=== PATIENT | female | born 1940 | race Caucasian/White ===

== ENCOUNTER 2019-03-25 06:16 | Inpatient (IN) | payer MEDICARE, MEDICAID ==
[~2019-03-25] VITALS: Ht 167.6 cm; Wt 68.5 kg
[2019-03-25 06:20] VITALS: BP_SYST 150
--- NOTE | 2019-03-25 06:40 | NUR ---
Patient to ER bed 4 to gown for evaluation. Side rails up. .
[2019-03-25] MEDS ORDERED: IBUP-1969 PO (06:54)
[2019-03-25] MEDS ORDERED: METO25TA3 PO (06:54)
[2019-03-25] MEDS ORDERED: LEVO25TA7 PO (06:54)
[2019-03-25] MEDS ORDERED: TRAM100T34 PO (06:54)
[2019-03-25] MEDS ORDERED: FURO-150 PO (06:54)
[2019-03-25] MEDS ORDERED: RIVA15TA PO (06:54)
[2019-03-25] MEDS ORDERED: POTA10TA15 PO (06:54)
--- NOTE | 2019-03-25 06:55 | NUR ---
Medication reconciliation completed with information provided by LAURA BUCIO. Any prior medication reconciliation on file was reviewed and corrected.
--- NOTE | 2019-03-25 07:05 | NUR ---
REPORT GIVEN TO DAY SHIFT.
--- NOTE | 2019-03-25 07:40 | NUR ---
ER Dr. Alaniz at bedside examining patient.
[2019-03-25 08:30] LABS: BASOPHILS # (AUTO) 0.1 K/uL (0.0-0.2); BASOPHILS % (AUTO) 1.5 % (0.0-2.0); EOSINOPHILS # (AUTO) 0.1 K/uL (0.0-0.4); EOSINOPHILS % (AUTO) 2.5 % (0.0-4.0); HEMATOCRIT 35.9 % (36-48); HEMOGLOBIN 11.5 g/dL (12.0-16.0); LYMPHOCYTES % (AUTO) 24.5 % (20.5-51.5); MEAN CORPUSCULAR HEMOGLOBIN 27 pg (27-31); MEAN CORPUSCULAR HGB CONC 32 % (32-36); MEAN CORPUSCULAR VOLUME 84 fL (79.0-98.0); MONOCYTES # (AUTO) 0.3 K/uL (0.0-1.0); NEUTROPHILS # (AUTO) 2.5 K/uL (1.8-7.7); NEUTROPHILS % (AUTO) 64.5 % (40.0-70.0); PLATELET COUNT (AUTO) 167 K/uL (130-430); RED BLOOD CELL COUNT(AUTO) 4.29 MIL/uL (4.2-6.2)
[2019-03-25 08:38] LABS: ANION GAP 6 (5-15); CALCIUM 8.4 mg/dL (8.4-11.0); CHLORIDE 110 mmol/L (98-107); GLUCOSE 104 mg/dL (70-99); POTASSIUM 4.8 mmol/L (3.5-5.1); SODIUM SERUM 145 mmol/L (136-145); UREA NITROGEN, BLOOD 19 mg/dL (8-21)
[2019-03-25 08:44] LABS: ALANINE AMINOTRANSFERASE 21 U/L (12-78); ALBUMIN 3.2 g/dL (3.4-4.8); ASPARTATE AMINOTRANSFERASE 30 U/L (10-37); INR 1.1 (0.8-1.2); PROTHROMBIN TIME 11.1 SECS (9.5-12.5)
[2019-03-25] MEDS ORDERED: NACL 0.9% 1,000 ML IV ONE (09:15)
[2019-03-25] MEDS ORDERED: ASPIRIN 81 MG TAB.CHEW PO ONE (09:15)
--- NOTE | 2019-03-25 09:47 | NUR ---
2 unsuccessful IV attempts made. CATRACHO Lou to attempt.
[2019-03-25 11:03] LABS: BILIRUBIN,URINE NEGATIVE (NEGATIVE); BLOOD, URINE 1+ (NEGATIVE); CLARITY/URINE HAZY (CLEAR); COLOR,URINE YELLOW (YELLOW); GLUCOSE,URINE NEGATIVE (NEGATIVE); KETONES,URINE TRACE (NEGATIVE); LEUKOCYTE ESTERASE ,URINE NEGATIVE (NEGATIVE); NITRITE, URINE POSITIVE (NEGATIVE); PROTEIN URINE 2+ (NEGATIVE); UROBILINOGEN,URINE 0.2 (0.2-1.0)
[2019-03-25 11:10] LABS: BACTERIA,URINE MANY /HPF (None Seen)
[2019-03-25 11:11] LABS: MUCUS,URINE 1+ /LPF (None Seen); URINE AMORPHOUS URATE 2+ /HPF (None Seen)
--- NOTE | 2019-03-25 11:19 | NUR ---
2 unsuccessful IV attempts made by CATRACHO Fabian. Addendum: 03/25/[address] Alaniz made aware.
[2019-03-25] MEDS ORDERED: FUROSEMIDE 40 MG/4 ML VIAL IVP ONE (11:30)
--- NOTE | 2019-03-25 11:53 | NUR ---
Unable to complete medication reconcilliation. Will endorse to admitting nurse.
--- NOTE | 2019-03-25 11:57 | NUR ---
Patient will be admitted to care of Dr. Liriano. Admitted to med/surg unit. Will go to room 123A. Belongings list completed. Summary report printed. Report will be given at bedside.
--- NOTE | 2019-03-25 12:14 | NUR ---
Patient transported via gurney, mobile monitor, RN, EMT with intact and patent 24g IV to right hand. Report to ge given at bedside.
--- NOTE | 2019-03-25 12:19 | NUR ---
ADMISSION NOTE Received patient from ER via bharat, received report from Negrito HAYDEN. Patient admitted with diagnosis of UTI, CHF. Patient oriented to hospital routine, call light, toileting and safety-patient verbalized understanding.
--- NOTE | 2019-03-25 12:50 | NUR ---
NURSING ASSESSMENT. PT SEEN OPENING THE BATHROOM DOOR, GAIT STEADY, SWELLING TO BOTH LEGS, STATED "I HAVE TO GO NOW", REFERRING TO DO #1, PT WAS GIVEN LASIX PRIOR TO ADMISSION. ENCOURAGED PT TO PULL DOWN BATHROOM STRING IF SHE NEEDS ASSISTANCE.
[2019-03-25 13:52] VITALS: BP_SYST 135
--- NOTE | 2019-03-25 14:29 | NUR ---
NURSING. PT LAYING DOWN IN BED AFTER FREQUENT TRIPS TO THE BEDSIDE COMMODE, O2 IN USE VIA NASAL CANNULA. SHE PROVIDED MEDICAL HISTORY. CODE STATUS DISCUSSED, PT STATED THAT SHE DID NOT WANT TO BE ON A LIFE SUPPORT IF BREATHING STOPS.
--- NOTE | 2019-03-25 15:15 | NUR ---
MD. DR LEE CAME IN AND EXAMINED PT.
[2019-03-25] MEDS ORDERED: IBUPROFEN 600 MG TABLET PO SCH (15:30)
[2019-03-25] MEDS ORDERED: METOPROLOL SUCCINATE 25 MG TAB.SR.24H (TOPROL XL) PO ONE (15:30)
[2019-03-25] MEDS ORDERED: RIVAROXABAN 15 MG TABLET PO ONE (15:30)
[2019-03-25 16:00] VITALS: BP_SYST 155
--- NOTE | 2019-03-25 16:50 | NUR ---
IV. PT'S DAUGHTER VISITING HER. PT PULLED OUT HER IV IN RIGHT HAND. IV INSERTED INTO RIGHT HAND USING 22 GAUGE CATHETER, WITH GOOD BLOOD RETURNED, AND WRAPPED WITH GAUZE FOR SECUREMENT.
[2019-03-25] MEDS: GENTAMICIN SULFATE 300 MG in NS 100 ML IV SCH (16:56)
[2019-03-25 20:45] VITALS: BP_SYST 150
--- NOTE | 2019-03-25 20:45 | NUR ---
INITIAL NOTES: BEDSIDE REPORT DONE FROM CATRACHO HANSEN AT 1020HR.PATIENT IN BED AWAKE ORIENTED X4, WATCHING TV SHOWS. DENIES CHEST PAIN NOR SOB,ON O2 2 LITERS PER N/C. SALINE LOCK TO RT. HAND PATENT. CALL LIGHT WITHIN REACH. BED IN LOW POSITION FOR SAFETY. BED ALARM ON. SINUS RHYTHM. WILL MONITOR CLOSELY.
--- NOTE | 2019-03-25 21:30 | NUR ---
ASSISTED TO BSC TO VOID ,CLEAR YELLOW URINE COLOR.DENIES SOB. NO MEDS DUE.
--- NOTE | 2019-03-25 21:35 | NUR ---
ASSISTED UP TO BSC TO VOID ,DENIES DYSURIA.
--- NOTE | 2019-03-25 23:30 | NUR ---
RESTING WITH EYES CLOSE. BREATHING PATTERN REGULAR.
[2019-03-26 01:40] VITALS: BP_SYST 131
--- NOTE | 2019-03-26 02:30 | NUR ---
GET UP TO BSC TO VOID. ASSISTED BACK TO BED. ON 2 ON.
--- NOTE | 2019-03-26 03:30 | NUR ---
FEELING SLIGHT SOB GOT UP TO BSC TO SIT FOR BREATHING COMFORT SINCE LAYING FLAT GOT WORST. INCREASED OXYGEN TO 3 LITERS PER N/C. SAT .98%. WILL MONITOR CLOSELY.
--- NOTE | 2019-03-26 04:10 | NUR ---
PATIENT RESTING WELL WITH EYES CLOSE DURING ROUNDS.
[2019-03-26] MEDS: LEVOTHYROXINE SODIUM 0.025 MG TABLET PO SCH (06:31)
[2019-03-26 06:34] LABS: BASOPHILS # (AUTO) 0.1 K/uL (0.0-0.2); BASOPHILS % (AUTO) 0.9 % (0.0-2.0); EOSINOPHILS % (AUTO) 0.9 % (0.0-4.0); HEMATOCRIT 37.7 % (36-48); LYMPHOCYTES # (AUTO) 1.2 K/uL (1.0-5.5); LYMPHOCYTES % (AUTO) 20.6 % (20.5-51.5); MEAN CORPUSCULAR HEMOGLOBIN 27 pg (27-31); MEAN CORPUSCULAR HGB CONC 32 % (32-36); MEAN CORPUSCULAR VOLUME 84 fL (79.0-98.0); MONOCYTES # (AUTO) 0.4 K/uL (0.0-1.0); MONOCYTES % (AUTO) 6.5 % (1.7-9.3); NEUTROPHILS # (AUTO) 4.1 K/uL (1.8-7.7); NEUTROPHILS % (AUTO) 71.1 % (40.0-70.0); PLATELET COUNT (AUTO) 180 K/uL (130-430); RED BLOOD CELL COUNT(AUTO) 4.49 MIL/uL (4.2-6.2); WHITE BLOOD COUNT (AUTO) 5.7 K/uL (4.8-10.8)
[2019-03-26 06:58] LABS: CALCIUM 8.5 mg/dL (8.4-11.0); CHLORIDE 106 mmol/L (98-107); GLUCOSE 83 mg/dL (70-99); POTASSIUM 3.9 mmol/L (3.5-5.1); SODIUM SERUM 145 mmol/L (136-145); UREA NITROGEN, BLOOD 19 mg/dL (8-21)
[2019-03-26 07:03] LABS: ANION GAP 13 (5-15)
--- NOTE | 2019-03-26 07:44 | NUR ---
ATTENDING MD DR LAWSON WAS CALLED , RE; ELEVATED TROP. SPOKE TO TEAGAN
[2019-03-26 08:00] VITALS: BP_SYST 131
--- NOTE | 2019-03-26 09:09 | NUR ---
CONSULTATION PAGED/CALLED Reason for Consultation: [] ELEVATED TROP Person Who was Notified: [] DANIELLA Consulting Physician: [] DR SANDOVAL Lunchroom Supervisor Specialty: [] CARDIOLOGY Ordering Physician: [] DR LAWSON
[2019-03-26] MEDS: POTASSIUM CHLORIDE 10 MEQ TAB.PRT.SR PO SCH (09:26)
[2019-03-26] MEDS: FUROSEMIDE 20 MG TABLET PO SCH (09:35)
[2019-03-26] MEDS: METOPROLOL SUCCINATE 25 MG TAB.SR.24H (TOPROL XL) PO SCH (09:36)
--- NOTE | 2019-03-26 11:28 | NUR ---
Nutrition Update Clarence Scale 18 noted. Pt admitted for UTI/CHF. Diet: cardiac BMI: 25 kg/m2 RD to follow per nutrition care standards.
[2019-03-26 12:43] VITALS: BP_SYST 133
[2019-03-26] MEDS ORDERED: ASPIRIN 81 MG TAB.CHEW PO ONE (13:15)
[2019-03-26] MEDS: RIVAROXABAN 15 MG TABLET PO SCH (15:31)
[2019-03-26] MEDS ORDERED: FUROSEMIDE 20 MG/2 ML VIAL IVP ONE (17:00)
[2019-03-26] MEDS: GENTAMICIN SULFATE 300 MG in NS 100 ML IV SCH (18:24)
--- NOTE | 2019-03-26 19:30 | NUR ---
OPENING NOTE Patient and bedside report was received from day shift nurse. Patient is AAO x 4 with no s/s of acute distress. Instructed patient to use call light for any needs; able to verbalize understanding and return demonstration. Safety and fall precautions in place. Bed alarm on. Call light with patient. Will monitor.
[2019-03-26 20:00] VITALS: BP_SYST 132
--- NOTE | 2019-03-26 23:40 | NUR ---
BEDSIDE COMMODE Patient's bed alarm went off and patient was already on bedside commode against nurse's instructions to use call light for assistance when getting out of bed. Encouraged patient to use call light for safety precautions and increased risk for falls. Verbalized understanding. Will continue with plan of care.
[2019-03-27 00:19] VITALS: BP_SYST 134
--- NOTE | 2019-03-27 03:23 | NUR ---
TELE LEADS/BEDSIDE COMMODE Tele leads were fixed and assisted to bedside commode to void.
[2019-03-27] MEDS: LEVOTHYROXINE SODIUM 0.025 MG TABLET PO SCH (06:05)
--- NOTE | 2019-03-27 06:52 | NUR ---
CLOSING NOTES All needs met throughout shift. Safety precautions maintained and in place. Will endorse care to day shift nurse.
[2019-03-27 07:52] VITALS: BP_SYST 132
[2019-03-27] MEDS: POTASSIUM CHLORIDE 10 MEQ TAB.PRT.SR PO SCH (08:45)
[2019-03-27] MEDS: FUROSEMIDE 20 MG TABLET PO SCH (08:46)
[2019-03-27] MEDS: ASPIRIN 81 MG TAB.CHEW PO SCH (08:46)
[2019-03-27] MEDS: RIVAROXABAN 15 MG TABLET PO SCH (08:47)
[2019-03-27] MEDS: METOPROLOL SUCCINATE 25 MG TAB.SR.24H (TOPROL XL) PO SCH (08:48)
[2019-03-27 09:34] LABS: BASOPHILS # (AUTO) 0.1 K/uL (0.0-0.2); EOSINOPHILS # (AUTO) 0.1 K/uL (0.0-0.4); EOSINOPHILS % (AUTO) 2.3 % (0.0-4.0); HEMATOCRIT 39.1 % (36-48); HEMOGLOBIN 12.5 g/dL (12.0-16.0); MEAN CORPUSCULAR HEMOGLOBIN 27 pg (27-31); MEAN CORPUSCULAR HGB CONC 32 % (32-36); MEAN CORPUSCULAR VOLUME 84 fL (79.0-98.0); MONOCYTES # (AUTO) 0.3 K/uL (0.0-1.0); NEUTROPHILS # (AUTO) 3.9 K/uL (1.8-7.7); NEUTROPHILS % (AUTO) 72.7 % (40.0-70.0); PLATELET COUNT (AUTO) 173 K/uL (130-430); RED BLOOD CELL COUNT(AUTO) 4.66 MIL/uL (4.2-6.2); RED CELL DISTRIBUTION WIDTH 17.7 % (9.0-15.0); WHITE BLOOD COUNT (AUTO) 5.3 K/uL (4.8-10.8)
[2019-03-27 09:53] LABS: ANION GAP 3 (5-15); CALCIUM 9.2 mg/dL (8.4-11.0); CHLORIDE 101 mmol/L (98-107); CREATININE 0.86 mg/dL (0.55-1.30); GLUCOSE 140 mg/dL (70-99); POTASSIUM 3.9 mmol/L (3.5-5.1); SODIUM SERUM 139 mmol/L (136-145); UREA NITROGEN, BLOOD 22 mg/dL (8-21)
[2019-03-27 12:35] VITALS: BP_SYST 145
[2019-03-27 16:26] VITALS: BP_SYST 107
[2019-03-27] MEDS: GENTAMICIN SULFATE 300 MG in NS 100 ML IV SCH (16:54)
--- NOTE | 2019-03-27 19:30 | NUR ---
OPENING NOTES Received patient resting in bed. No signs of acute distress, patient is on 3L Nasal Canula. Patient has a right IV 22g saline lock on the Right hand. Patient has call light within reach, bed at lowest position, and bed alarm is refused after risks and benefits of bed alarm explained. Patient verbalized understanding, and refused. Will continue to monitor.
[2019-03-27 20:00] VITALS: BP_SYST 124
[2019-03-27] MEDS ORDERED: FUROSEMIDE 20 MG/2 ML VIAL IVP SCH (20:00)
--- NOTE | 2019-03-27 22:00 | NUR ---
Patient ambulates to go on bed side commode. Linen was changed, and provided patient with perineal care. Patient had Lasix and education risks and benefits on bed alarm provided, but patient refused bed alarm. Call light within reach and bed at lowest position. Will continue to monitor for safety.
[2019-03-27 23:39] VITALS: BP_SYST 121
--- NOTE | 2019-03-28 | NUR ---
Patient ambulated to use the bedside commode. No signs of acute respiratory distress observed, 3L NC. Patient also performed oral care and is now resting in bed. Patient refused bed alarm after risks and benefits verbalized by patient. Will continue to monitor.
--- NOTE | 2019-03-28 02:00 | NUR ---
Patient resting in bed, no acute respiratory distress observed. Will continue to monitor.
--- NOTE | 2019-03-28 04:20 | NUR ---
Patient ambulated to go to the bedside commode. No signs of acute respiratory distress observed. Perineal care done. Linens cleaned. Safety precautions in place. Will continue to monitor.
[2019-03-28] MEDS: LEVOTHYROXINE SODIUM 0.025 MG TABLET PO SCH (06:37)
[2019-03-28 06:58] LABS: ANION GAP 7 (5-15); CALCIUM 8.3 mg/dL (8.4-11.0); CHLORIDE 103 mmol/L (98-107); CREATININE 0.74 mg/dL (0.55-1.30); GLUCOSE 89 mg/dL (70-99); POTASSIUM 3.9 mmol/L (3.5-5.1); SODIUM SERUM 143 mmol/L (136-145); UREA NITROGEN, BLOOD 29 mg/dL (8-21)
--- NOTE | 2019-03-28 06:58 | NUR ---
CLOSING NOTES Patient is resting in bed. No acute respiratory distress observed, 3L NC, HOB elevated. IV right hand 22g patent, dressings c/d/i. All needs met throughout shift. Call light within reach, bed alarm refused after patient understanding risks and benefits, and bed at lowest position. Will endorse care to oncoming shift.
--- NOTE | 2019-03-28 07:30 | NUR ---
Opening Notes Patient received lying comfortably in her bed, alert, awake and verbally responsive. Denies any pain or discomfort at this time. Able to verbalize needs and concerns. Saline Lock to right hand remain to be intact and patent. Attended to needs and anticipated. Discussed with patient plan of care and importance of call light, patient verbalized understanding. Call light within easy reach. Bedside commode at bedside. Fall precaution observed. Will continue to monitor.
--- NOTE | 2019-03-28 08:30 | NUR ---
Medication Administration Patient educated on medication usage and its potential side effects, patient verbalized understanding. All due medications give, well tolerated. Assisted patient with Br privileges and oral care, well tolerated. Assisted to bed. Denies any pain or discomfort. Will continue to monitor.
[2019-03-28] MEDS: ASPIRIN 81 MG TAB.CHEW PO SCH (08:34)
[2019-03-28] MEDS: FUROSEMIDE 20 MG TABLET PO SCH (08:34)
[2019-03-28] MEDS: METOPROLOL SUCCINATE 25 MG TAB.SR.24H (TOPROL XL) PO SCH (08:35)
[2019-03-28] MEDS: POTASSIUM CHLORIDE 10 MEQ TAB.PRT.SR PO SCH (08:35)
[2019-03-28] MEDS: RIVAROXABAN 15 MG TABLET PO SCH (08:36)
--- NOTE | 2019-03-28 09:50 | NUR ---
Daughter At bedside Daughter at bedside, denies any pain or discomfort at this time. Call light within the reach. Will continue to monitor.
[2019-03-28 10:10] VITALS: BP_SYST 124
--- NOTE | 2019-03-28 11:30 | NUR ---
Assisted to commode Patient assisted to commode, well tolerated. Denies any pain or discomfort at this time. Patient verbalized swelling on her vagina due to prolapse, upon assessment, no swelling noted, patient then stated "i don't know where it went". Call light within the reach. Will continue to monitor.
[2019-03-28 12:00] VITALS: BP_SYST 112
--- NOTE | 2019-03-28 14:24 | NUR ---
Hygiene/Restroom patient calling at this time, had episode of incontinence, assisted patient to restroom to have a BM, patient is ambulatory needs stand by assistance, assisted patient with new gown as well, no other needs at this time, bed in lowest position, two side rails up, call light within reach, fall and aspiration precautions in place.
[2019-03-28 16:04] VITALS: BP_SYST 122
--- NOTE | 2019-03-28 16:30 | NUR ---
Dr. Ferrara Round Seen and examined by MD with new order to ambulate patient around the hallway and the get her ready for discharge today, will f/u for home health, noted and carried out. Ambulated patient around the hallway, well tolerated, denies any SOB, dizziness or lightheadedness.
[2019-03-28] MEDS ORDERED: GENTAMICIN 100 MG/ ISO-OSM 50 ML PREMIX IV SCH (17:00)
--- NOTE | 2019-03-28 17:07 | NUR ---
Notified Granddaughter of discharge Called and spoke with Elizabeth, the grand daughter, notified that she is gonna be discharge today and will be ready at 6:30pm, verbalized understanding and she will be here to pick her up.
[2019-03-28 17:10] VITALS: BP_SYST 122
[2019-03-28] MEDS ORDERED: CIPR-172 PO (17:17)
--- NOTE | 2019-03-28 18:20 | NUR ---
D/C Patient Patient given medication reconciliation form and D/C instructions. Exit Care provided. Patient verbalized understanding. MD discussed with patient the results and treatment provided. Ambulatory with steady gait for discharge to home. Patient in stable condition, ID band removed. IV catheter removed, intact and dressing applied, no active bleeding. Rx of Cipro given. Patient educated on pain management. All belongings sent with patient.
--- NOTE | 2019-03-30 10:00 | NUR ---
Discharge Planning: CTP left a message for Elizabeth Vazquez ([phone]) to inquire if home health was set up or if not which home health would e preferred.
--- NOTE | 2019-03-31 15:44 | NUR ---
Discharge Planning: [place] [facility] [place] [phone] p [phone]) pt needs home health. DCP to follow up.
--- NOTE | 2019-04-06 15:36 | NUR ---
Discharge follow up call: SHADOWGRAPH OPERATOR phoned [facility] @ [phone] and spoke to nurse who states that the patient is doing "okay" but she is still "bruised up, probably from the hospital stay". RN states pt has an appointment with her PCP in two weeks and HH has also dropped off pt's hospital bed. RN states no other HH services received, but MD Order states HH for patient. SHADOWGRAPH OPERATOR phoned [facility] after 3PM @ [phone], left a message to call back to confirm HH services. SS will follow up.
== END 2019-03-28 18:20 | disposition home health service (06) | DRG 292 ==
LOC: SED 06:16 → STU 11:56
PROVIDERS: ADMIT Family Medicine; ATTEND Family Medicine
DX: I11.0 Hypertensive heart disease with heart failure (principal); N39.0 Urinary tract infection, site not specified; E03.9 Hypothyroidism, unspecified; I09.9 Rheumatic heart disease, unspecified; I50.9 Heart failure, unspecified; Z66 Do not resuscitate; I08.0 Rheumatic disorders of both mitral and aortic valves; M19.90 Unspecified osteoarthritis, unspecified site; Z88.0 Allergy status to penicillin; Z87.11 Personal history of peptic ulcer disease; Z79.899 Other long term (current) drug therapy
CPT/HCPCS: 36415; 71045; 80048; 80053; 80170-TC; 81000-TC; 82550-TC; 83605; 83880; 84484; 85025; 85610-TC; 85730-TC; 87040-TC; 87086; 93005; 93306; 96361; 96374; 99285; G0378; J1580; J1940; J7030

== ENCOUNTER 2019-06-22 21:57 | Inpatient (IN) | payer MEDICARE, MEDICAID ==
[~2019-06-22] VITALS: Ht 167.6 cm; Wt 65.8 kg
[~2019-06-22 21:57] MED LIST: CIPR-172 PO; FURO-150 PO; IBUP-1969 PO; LEVO25TA7 PO; METO25TA3 PO; POTA10TA15 PO; RIVA15TA PO; TRAM100T34 PO
[2019-06-22 22:03] VITALS: BP_SYST 139
--- NOTE | 2019-06-22 22:07 | NUR ---
Patient triaged and placed on ems gurney. VSS and patient appears in no acute distress at this time. Accompanied by ems, awaiting available bed, and MD notified of need for MSE.
--- NOTE | 2019-06-22 23:40 | NUR ---
Placed in room 02 . Placed on mirror framer, blood pressure machine and pulse oximeter. To gown for exam. Side rails up.
--- NOTE | 2019-06-22 23:42 | NUR ---
Jeny dominguez in ED - 06/22/19 at 2343 by [email or web address] [facility] Side rails up.
--- NOTE | 2019-06-23 | NUR ---
Pt coming in via BLS for cough and congestion for 3 days with SOB. Denies n/v/d or fever. Currently patient is O2 stat is 97%. NO other complaints/injuries noted. Will cont. to monitor.
[2019-06-23 00:53] LABS: HEMATOCRIT 35.2 % (36-48); HEMOGLOBIN 11.4 g/dL (12.0-16.0); MEAN CORPUSCULAR HEMOGLOBIN 27 pg (27-31); MEAN CORPUSCULAR HGB CONC 33 % (32-36); MEAN CORPUSCULAR VOLUME 82 fL (79.0-98.0); PLATELET COUNT (AUTO) 135 K/uL (130-430); RED CELL DISTRIBUTION WIDTH 18.2 % (9.0-15.0)
--- NOTE | 2019-06-23 01:03 | NUR ---
PT ambulated with steady gait to bathroom. provided urine sample. Will send to lab.
[2019-06-23 01:06] LABS: ANION GAP 7 (5-15); CALCIUM 8.1 mg/dL (8.4-11.0); CHLORIDE 103 mmol/L (98-107); CREATININE 0.78 mg/dL (0.55-1.30); GLUCOSE 102 mg/dL (70-99); POTASSIUM 3.7 mmol/L (3.5-5.1); SODIUM SERUM 141 mmol/L (136-145); UREA NITROGEN, BLOOD 24 mg/dL (8-21)
[2019-06-23 01:10] LABS: ATYPICAL LYMPHOCYTES % 0 % (0-0); BAND % (MANUAL) 1 % (0-6); BASOPHILS % (MANUAL) 0 % (0-2); EOSINOPHILS % (MANUAL) 0 % (0-7); INR 1.1 (0.8-1.2); LYMPHOCYTES % (MANUAL) 14 % (20-46); METAMYELOCYTES % 1 % (0-0); MONOCYTES % (MANUAL) 5 % (0-11); PROTHROMBIN TIME 10.9 SECS (9.5-12.5)
[2019-06-23 01:12] LABS: ALANINE AMINOTRANSFERASE 31 U/L (12-78); ALBUMIN 3.5 g/dL (3.4-4.8); ASPARTATE AMINOTRANSFERASE 42 U/L (10-37); TOTAL BILIRUBIN 0.7 mg/dL (0.0-1.0)
[2019-06-23 01:32] LABS: BILIRUBIN,URINE NEGATIVE (NEGATIVE); BLOOD, URINE 1+ (NEGATIVE); CLARITY/URINE CLEAR (CLEAR); COLOR,URINE YELLOW (YELLOW); GLUCOSE,URINE NEGATIVE (NEGATIVE); KETONES,URINE TRACE (NEGATIVE); LEUKOCYTE ESTERASE ,URINE NEGATIVE (NEGATIVE); NITRITE, URINE POSITIVE (NEGATIVE); PH,URINE 5.5 (5.0-8.0); PROTEIN URINE 1+ (NEGATIVE); UROBILINOGEN,URINE 0.2 (0.2-1.0)
[2019-06-23 01:43] LABS: BACTERIA,URINE MANY /HPF (None Seen); RBC,URINE 0-3 /HPF (0-3); WBC,URINE 0-3 /HPF (0-3)
--- NOTE | 2019-06-23 02:00 | NUR ---
Pt resting comfortably in bed, no signs of acute distress. Will cont. to monitor.
[2019-06-23] MEDS ORDERED: LEVOFLOXACIN 500 MG/D5W 100 ML IV ONE (02:30)
--- NOTE | 2019-06-23 03:15 | NUR ---
sputum sample collected.
[2019-06-23] MEDS ORDERED: LevALBUTEROL HCL 1.25 MG/0.5 ML *CONC.* VIAL.NEB (XOPENEX CONC.) INH ONE (03:30)
[2019-06-23] MEDS ORDERED: NACL 0.9% 1,000 ML IV ONE (04:21)
[2019-06-23] MEDS ORDERED: ACETAMINOPHEN 325 MG TABLET PO PRN (04:45)
[2019-06-23] MEDS ORDERED: traMADol HCL HCL 50 MG TABLET (ULTRAM) PO PRN (04:45)
[2019-06-23] MEDS ORDERED: IPRATROPIUM/ALBUTEROL SULFATE 3 ML AMPUL.NEB (DUONEB) INH PRN (04:45)
[2019-06-23] MEDS ORDERED: IBUPROFEN 600 MG TABLET PO SCH (04:45)
[2019-06-23] MEDS ORDERED: HYDROcodone/ACETAMIN 5-325 MG TAB (NORCO/ VICODIN) PO PRN (04:45)
[2019-06-23] MEDS ORDERED: ONDANSETRON HCL 4 MG/2 ML VIAL IVP PRN (04:45)
--- NOTE | 2019-06-23 04:47 | NUR ---
Patient will be admitted to care of Dr. Martel. Admitted to MS unit. Will go to room 101A. Belongings list completed. Complete and up to date summary report printed. SBAR report to be given at bedside with opportunity for questions.
--- NOTE | 2019-06-23 05:04 | NUR ---
Medication reconciliation completed with information provided by patient. Any prior medication reconciliation on file was reviewed and corrected.
--- NOTE | 2019-06-23 05:05 | NUR ---
Transfer to [facility]. IV present no sign or symptom of infiltration.
[2019-06-23 05:13] LABS: FREE T4 (FREE THYROXINE) 1.2 ng/dl (0.8-1.5); PHOSPHORUS 4.5 mg/dL (2.7-4.5); THYROID STIMULATING HORMONE 2.43 uIu/mL (0.36-3.74)
--- NOTE | 2019-06-23 05:39 | NUR ---
Transfer to [facility]. IV present no sign or symptom of infiltration.
--- NOTE | 2019-06-23 05:39 | NUR ---
ADMISSION: The patient, STANLEY VALADEZ, 78 y/o, F admitted by SABIHA CLARK DO, with diagnosis of pneumonia; primary nurse at bedside; was given written information regarding hospital policies, unit procedures and contact persons.
--- NOTE | 2019-06-23 05:40 | NUR ---
ADMITTED AN 78 YEAR OLD FEMALE WHO WAS BROUGHT IN FROM THE E[facility]IA [facility] WITH A DIAGNOSIS OF PNEUMONIA UNDER THE SERVICE OF . IV FLUID NS CONTINUED FROM THE E.R. @ 250 ML/HR. PT.IS ALERT,ORIENTED, AMBULATORY. AFEBRILE, NOT IN ACUTE DISTRESS. DENIES ANY PAIN OR DISCOMFORT. VS STABLE, WILL CONTINUE TO MONITOR. NEEDS ATTENDED.
[2019-06-23 05:53] VITALS: BP_SYST 127
[2019-06-23 05:55] VITALS: BP_SYST 139
[2019-06-23] MEDS ORDERED: IPRATROPIUM/ALBUTEROL SULFATE 3 ML AMPUL.NEB (DUONEB) INH SCH (06:00)
[2019-06-23] MEDS ORDERED: FLU VACC TS2019(65UP)/MF59C/PF 45 MCG/0.5 ML SYRINGE I.M. PRN (06:15)
[2019-06-23] MEDS ORDERED: IBUPROFEN 600 MG TABLET PO PRN (07:16)
--- NOTE | 2019-06-23 07:36 | NUR ---
ENDORSED CARE TO CRISTAL DE PAZ.
[2019-06-23 08:00] VITALS: BP_SYST 144
--- NOTE | 2019-06-23 08:00 | NUR ---
RN OPENING NOTE patient is resting in bed, alert oriented x4, patient denies pain or discomfort. patient was assessed, vital signs are stable. bed at low position and call light within reach, bed alarm is on, will continue to monitor.
[2019-06-23] MEDS ORDERED: FUROSEMIDE 20 MG TABLET PO SCH (09:00)
[2019-06-23] MEDS: LEVOTHYROXINE SODIUM 0.025 MG TABLET PO SCH (09:01)
[2019-06-23] MEDS: POTASSIUM CHLORIDE 10 MEQ TAB.PRT.SR PO SCH (09:01)
[2019-06-23] MEDS: DOCUSATE SODIUM 100 MG CAPSULE PO SCH (09:01)
[2019-06-23] MEDS: METOPROLOL SUCCINATE 25 MG TAB.SR.24H (TOPROL XL) PO SCH (09:02)
[2019-06-23] MEDS: RIVAROXABAN 15 MG TABLET PO SCH (09:03)
[2019-06-23] MEDS ORDERED: FUROSEMIDE 20 MG/2 ML VIAL IVP ONE (09:45)
--- NOTE | 2019-06-23 10:00 | NUR ---
RN NOTE PATIENT IS RESTING IN BED WAS SERVED HER BREAKFAST. PATIENT'S WAS GIVEN HER MEDICATION, WILL CONTINUE TO MONITOR.
[2019-06-23] MEDS: methylPREDNISolone SOD SUCC 40 MG/ML VIAL IVP SCH ×2 (11:54→17:22)
[2019-06-23 12:00] VITALS: BP_SYST 145
--- NOTE | 2019-06-23 12:00 | NUR ---
RN NOTE PATIENT WAS SERVED HER LUNCH, PATIENT WAS HELPED TO HER BSC. PATIENT SAT DOWN EATING HER LUNCH. WILL CONTINUE TO MONITOR.
[2019-06-23] MEDS: IPRATROPIUM/ALBUTEROL SULFATE 3 ML AMPUL.NEB (DUONEB) INH SCH ×2 (13:23→19:42)
--- NOTE | 2019-06-23 14:00 | NUR ---
RN NOTE PATIENT WAS HELPED THE BSC. PATIENT DENIES PAIN OR DISCOMFORT.
--- NOTE | 2019-06-23 16:00 | NUR ---
RN NOTE PATIENT IS RESTING IN BED, DENIES PAIN OR DISCOMFORT. WILL CONTINUE TO MONITOR.
[2019-06-23 16:34] VITALS: BP_SYST 135
--- NOTE | 2019-06-23 17:57 | NUR ---
RN CLOSING NOTE PATIENT'S WAS SERVED HER DINNER, PATIENT'S DENIES PAIN OR DISCOMFORT. WILL CONTINUE TO MONITOR. AND WILL ENDORSE TO NEXT SHIFT.
--- NOTE | 2019-06-23 19:10 | NUR ---
OPENING NOTES Bedside report received from dayshift nurse. Patient received lying in bed, watching TV, no s/s of acute distress noted. Breathing is even and unlabored, HOB raised, nasal canula attached properly, on 2L of oxygen. IV site is patent, no signs of infiltration or infection noted. Bedside commode present at bedside. Call light with patient, instructed to call for assistance, patient verbalized understanding. Patient demonstrated proper use of call light.
[2019-06-23 20:00] VITALS: BP_SYST 156
[2019-06-23] MEDS: LEVOFLOXACIN 500 MG/D5W 100 ML IV SCH (20:03)
[2019-06-23] MEDS: FUROSEMIDE 20 MG/2 ML VIAL IVP SCH (20:14)
--- NOTE | 2019-06-23 21:00 | NUR ---
ROUNDS Patient in bed receiving breathing treatment. No signs of discomfort noted. Call light with patient. Will continue to monitor.
--- NOTE | 2019-06-23 22:24 | NUR ---
CONSULTATION PAGED/CALLED Reason for Consultation: PNA Person Who was Notified:ELENA Consulting Physician: CALI Physician Support Coordinator Specialty: PULMO Ordering Physician: AMBER
--- NOTE | 2019-06-23 23:00 | NUR ---
ROUNDS Patient in bed resting at this time. HOB raised. No s/s of acute distress noted. Breathing even and unlabored. Nasal canula attached properly, on 2L of oxygen. Call light with patient. Will continue to monitor.
[2019-06-24] MEDS: IPRATROPIUM/ALBUTEROL SULFATE 3 ML AMPUL.NEB (DUONEB) INH SCH ×4 (00:11→19:35)
[2019-06-24 00:13] VITALS: BP_SYST 119
--- NOTE | 2019-06-24 01:00 | NUR ---
ROUNDS Patient in bed, eyes closed, appears to be asleep. No signs of discomfort noted. Chest rise and fall even bilaterally. Call light with patient. Will continue to monitor.
[2019-06-24] MEDS: methylPREDNISolone SOD SUCC 40 MG/ML VIAL IVP SCH (02:02)
--- NOTE | 2019-06-24 03:00 | NUR ---
ROUNDS Patient in bed, awake, watching TV. No s/s of acute distress noted. Breathing even and unlabored, HOB raised, nasal canula attached properly. Call light with patient. Will continue to monitor.
--- NOTE | 2019-06-24 06:20 | NUR ---
CLOSING NOTES Patient in bed sleeping at this time. No s/s of acute distress noted. Breathing is even and unlabored. HOB raised, nasal canula attached properly, on 2L of oxygen. IV site is patent, no signs of infiltration or infection noted. Bedside commode present at bedside. All needs met throughout the shift. Fall and safety precautions maintained throughout shift. Will continue to monitor until patient care is endorsed to oncoming dayshift nurse.
--- NOTE | 2019-06-24 07:50 | NUR ---
INITIAL NOTE RECEIVED PT IN BED, NO S/S OF DISTRESS OR SOB NOTED, PT HAS NO C/O PAIN AT THIS TIME, PT IN STABLE CONDITION, PT AAOX4, VERBAL. PT ON OXYGEN 2 LITERS VIA NASAL CANNULA, SATURATION OF 95%. IV CATHETER PATENT, FLUSHES AND HAS NO SIGNS OF INFECTION OR INFILTRATION. BED AT LOWEST POSITION,CALL LIGHT WITHIN REACH, WILL CONTINUE TO MONITOR PT FOR ANY CHANGES, FALL, SAFETY PRECAUTIONS IN PLACE.
[2019-06-24 08:07] LABS: ANION GAP 6 (5-15); CALCIUM 8.1 mg/dL (8.4-11.0); CHLORIDE 96 mmol/L (98-107); CHOLESTEROL 148 mg/dL (<200); CREATININE 0.83 mg/dL (0.55-1.30); GLUCOSE 164 mg/dL (70-99); HDL CHOLESTEROL 61 mg/dL (>55); LDL CHOLESTEROL 78 mg/dL (<100); POTASSIUM 3.4 mmol/L (3.5-5.1); SODIUM SERUM 133 mmol/L (136-145); TRIGLYCERIDES 36 mg/dL (30-150); UREA NITROGEN, BLOOD 21 mg/dL (8-21)
[2019-06-24 08:30] VITALS: BP_SYST 138
[2019-06-24] MEDS: DOCUSATE SODIUM 100 MG CAPSULE PO SCH (09:14)
[2019-06-24] MEDS: RIVAROXABAN 15 MG TABLET PO SCH (09:18)
[2019-06-24] MEDS: POTASSIUM CHLORIDE 10 MEQ TAB.PRT.SR PO SCH (09:18)
[2019-06-24] MEDS: LEVOTHYROXINE SODIUM 0.025 MG TABLET PO SCH (09:18)
[2019-06-24] MEDS: FUROSEMIDE 20 MG/2 ML VIAL IVP SCH ×2 (09:19→21:03)
[2019-06-24] MEDS: METOPROLOL SUCCINATE 25 MG TAB.SR.24H (TOPROL XL) PO SCH (09:19)
[2019-06-24] MEDS ORDERED: POTASSIUM CHLORIDE 20 MEQ TAB.PRT.SR PO ONE (10:15)
--- NOTE | 2019-06-24 10:20 | NUR ---
ROUNDS PT IN BED, NO S/S OF DISTRESS OR SOB NOTED, PT HAS NO C/O PAIN AT THIS TIME, PT IN STABLE CONDITION, PT RESTING COMFORTABLY, WILL CONTINUE TO MONITOR PT FOR ANY CHANGES.
[2019-06-24 12:21] VITALS: BP_SYST 140
[2019-06-24 17:06] VITALS: BP_SYST 142
--- NOTE | 2019-06-24 18:36 | NUR ---
CLOSING NOTE PT IN BED, NO S/S OF DISTRESS OR SOB NOTED, PT HAS NO C/O PAIN AT THIS TIME, PT IN STABLE CONDITION, PT AAOX4, VERBAL. PT ON OXYGEN 2 LITERS VIA NASAL CANNULA, SATURATION OF 95%. IV CATHETER PATENT, FLUSHES AND HAS NO SIGNS OF INFECTION OR INFILTRATION. BED AT LOWEST POSITION,CALL LIGHT WITHIN REACH, WILL ENDORSE CARE OF PT TO INCOMING NURSE FALL, SAFETY PRECAUTIONS IN PLACE.
[2019-06-24 20:00] VITALS: BP_SYST 121
[2019-06-24] MEDS: LEVOFLOXACIN 500 MG/D5W 100 ML IV SCH (20:56)
[2019-06-24 23:28] VITALS: BP_SYST 130
[2019-06-25] MEDS: IPRATROPIUM/ALBUTEROL SULFATE 3 ML AMPUL.NEB (DUONEB) INH SCH ×3 (00:23→13:08)
[2019-06-25 04:00] VITALS: BP_SYST 127
--- NOTE | 2019-06-25 08:00 | NUR ---
RN INITIAL NOTES RECEIVED PATIENT IN BED ALERT AWAKE NOT IN DISTRESS VERBAL AND ABLE TO ANSWER QUESTION WITH O2 AT 2 L/MIN PATIENT , SATING 94%
[2019-06-25 08:30] VITALS: BP_SYST 156
[2019-06-25] MEDS: FUROSEMIDE 20 MG/2 ML VIAL IVP SCH (09:07)
[2019-06-25] MEDS: POTASSIUM CHLORIDE 10 MEQ TAB.PRT.SR PO SCH (09:07)
[2019-06-25] MEDS: DOCUSATE SODIUM 100 MG CAPSULE PO SCH (09:07)
[2019-06-25] MEDS: METOPROLOL SUCCINATE 25 MG TAB.SR.24H (TOPROL XL) PO SCH (09:08)
[2019-06-25] MEDS: LEVOTHYROXINE SODIUM 0.025 MG TABLET PO SCH (09:08)
[2019-06-25] MEDS: RIVAROXABAN 15 MG TABLET PO SCH (09:11)
[2019-06-25 09:58] LABS: BASOPHILS % (AUTO) 0.2 % (0.0-2.0); HEMATOCRIT 36.7 % (36-48); HEMOGLOBIN 12.1 g/dL (12.0-16.0); LYMPHOCYTES # (AUTO) 0.6 K/uL (1.0-5.5); LYMPHOCYTES % (AUTO) 12.5 % (20.5-51.5); MEAN CORPUSCULAR HEMOGLOBIN 27 pg (27-31); MEAN CORPUSCULAR HGB CONC 33 % (32-36); MEAN CORPUSCULAR VOLUME 82 fL (79.0-98.0); MONOCYTES # (AUTO) 0.3 K/uL (0.0-1.0); MONOCYTES % (AUTO) 6.3 % (1.7-9.3); NEUTROPHILS # (AUTO) 3.9 K/uL (1.8-7.7); PLATELET COUNT (AUTO) 161 K/uL (130-430); RED BLOOD CELL COUNT(AUTO) 4.49 MIL/uL (4.2-6.2); RED CELL DISTRIBUTION WIDTH 18.3 % (9.0-15.0); WHITE BLOOD COUNT (AUTO) 4.8 K/uL (4.8-10.8)
--- NOTE | 2019-06-25 10:00 | NUR ---
DR CLARK PATIENT SEEN BY DR CLARK AND DISCUSSED PATIENT CONDITION THAT PATIENT HAD ASKED BY UNDERSIGNED TO TAKE A DEEP BREATH BEFORE I GOT THE O2 SAT OF 94% .. INITIAL WAS FROM 89- 92% WITH 2 L/MIN , PATIENT STATED SHE DONT HAVE A PROBLEM BREATHING IN HER PLACE , DISCUSSED WITH MD THAT PATIENT NEEDS TO HAVE O2 INH ALL THE TIME TO MAINTAIN 02 SAT TO 93-( Addendum: 06/25/19 at 1103 by Kate Gasca RN TO 94% OF O2 SAT , PATIENT GOES TO [facility] SAFETY AWARENESS REINFORCED PATIENT STATED I DO IT ON MY OWN I"M CAREFUL.
[2019-06-25 10:17] LABS: ANION GAP 4 (5-15); CALCIUM 8.4 mg/dL (8.4-11.0); CHLORIDE 97 mmol/L (98-107); CREATININE 0.95 mg/dL (0.55-1.30); GLUCOSE 115 mg/dL (70-99); POTASSIUM 3.9 mmol/L (3.5-5.1); SODIUM SERUM 137 mmol/L (136-145); UREA NITROGEN, BLOOD 28 mg/dL (8-21)
[2019-06-25 12:00] VITALS: BP_SYST 130
--- NOTE | 2019-06-25 12:20 | NUR ---
Dietitian Recommendations * Recommend continuing regular diet * Encourage increase PO intakes LP, RD Please refer to Nutrition Assessment for details. Addendum: 06/25/19 at [address] Amended: Links added.
--- NOTE | 2019-06-25 14:00 | NUR ---
PT ORDERED PATIENT CONSULTED WITH PT ,PATIENT AMBULATES WITH STEADY GAIT NO SIGN OF DISTRESS
--- NOTE | 2019-06-25 16:00 | NUR ---
ROUNDS SITTING IN HER BED NO DISTRESS
--- NOTE | 2019-06-25 16:37 | NUR ---
AMBULATION AMBULATED THE PATIENT IN THE HALLWAY ON ROOM AIR WITH FWW. PATIENT HAS NO SHORTNESS OF BREATH. AMBULATED ABOUT 100 FEET WITHOUT DISTRESS. O2 SATURATION POST AMBULATION ON ROOM AIR IS 95 %. CALLED AND NOTIFIED MD DECIDED TO DISCHARGE THE PATIENT ON 5 MORE DAYS OF PO ANTIBIOTICS. PATIENT WAS NOTIFIED
[2019-06-25] MEDS ORDERED: LEVO500T89 PO (17:15)
[2019-06-25 18:05] VITALS: BP_SYST 134
--- NOTE | 2019-06-25 18:28 | NUR ---
D/C Patient Patient given medication reconciliation form and D/C instructions. Exit Care provided. Patient verbalized understanding. MD discussed with patient the results and treatment provided. Ambulatory with steady gait for discharge to home. Patient in stable condition, ID band removed. IV catheter removed, intact and dressing applied, no active bleeding. 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 Patient educated on pain management. All belongings sent with patient.
== END 2019-06-25 18:35 | disposition home or self-care (01) | DRG 177 ==
LOC: SED 21:57 → SMU 06-23 04:30
PROVIDERS: ADMIT Family Medicine; ATTEND Family Medicine
DX: J69.0 Pneumonitis due to inhalation of food and vomit (principal); I50.43 Acute on chronic combined systolic (congestive) and diastolic (congestive) heart failure; N39.0 Urinary tract infection, site not specified; E87.1 Hypo-osmolality and hyponatremia; J20.9 Acute bronchitis, unspecified; I11.0 Hypertensive heart disease with heart failure; I08.0 Rheumatic disorders of both mitral and aortic valves; E03.9 Hypothyroidism, unspecified; I48.0 Paroxysmal atrial fibrillation; E87.6 Hypokalemia; Z90.49 Acquired absence of other specified parts of digestive tract; Z86.19 Personal history of other infectious and parasitic diseases; Z87.11 Personal history of peptic ulcer disease; Z79.899 Other long term (current) drug therapy; Z88.0 Allergy status to penicillin; Z86.73 Personal history of transient ischemic attack (TIA), and cerebral infarction without residual deficits
CPT/HCPCS: 36415; 71045; 80048; 80053; 80061; 81000-TC; 83036; 83605; 83690-TC; 83735-TC; 83880; 84100-TC; 84439; 84443-TC; 84484; 85007; 85025; 85027; 85610-TC; 85730-TC; 87040-TC; 87070-TC; 87086; 87205-TC; 93005; 94640; 94760; 96361; 96365; 97530-GP; 99285; J1030; J1940; J1956; J7612; J7620

== ENCOUNTER 2019-06-27 06:18 | Emergency (ER) | payer MEDICARE, MEDICAID ==
[~2019-06-27] VITALS: Ht 170.2 cm; Wt 63.5 kg
[2019-06-27 06:18] VITALS: BP_SYST 131
[~2019-06-27 06:18] MED LIST changes: -CIPR-172 PO; +LEVO500T89 PO; -TRAM100T34 PO
--- NOTE | 2019-06-27 06:20 | NUR ---
Dr. Irizarry at bedside.
--- NOTE | 2019-06-27 06:20 | NUR ---
Patient to ER bed 3 to gown for evaluation. Side rails up.
--- NOTE | 2019-06-27 06:25 | NUR ---
Pt brought in by S ambulance. Pt awake, alert, oriented x4. Pt was last seen in [facility] on 06/22/19 for flue-like symptoms. Pt was sent from [facility] after having flu-lik symptoms. Nurses informed EMS staff that pt was supposed to get a prescription for breathing treatment, but did not recieve one. Pt denies chest pain, Nausea, vomiting, shortness of breath. Pt resting in ED bed comfortably, no acute distress noted. VSS
[2019-06-27] MEDS ORDERED: LevALBUTEROL HCL 1.25 MG/0.5 ML *CONC.* VIAL.NEB (XOPENEX CONC.) INH ONE (06:30)
[2019-06-27] MEDS ORDERED: IPRATROPIUM BROM 0.5 MG/2.5 ML VIAL.NEB (ATROVENT) INH ONE (06:30)
--- NOTE | 2019-06-27 06:38 | NUR ---
RT Bedside performing breathing treatment
[2019-06-27 07:07] LABS: BASOPHILS % (AUTO) 0.8 % (0.0-2.0); EOSINOPHILS # (AUTO) 0.1 K/uL (0.0-0.4); EOSINOPHILS % (AUTO) 1.2 % (0.0-4.0); HEMATOCRIT 34.7 % (36-48); HEMOGLOBIN 11.4 g/dL (12.0-16.0); LYMPHOCYTES % (AUTO) 22.9 % (20.5-51.5); MEAN CORPUSCULAR HEMOGLOBIN 27 pg (27-31); MEAN CORPUSCULAR HGB CONC 33 % (32-36); MEAN CORPUSCULAR VOLUME 81 fL (79.0-98.0); MONOCYTES # (AUTO) 0.3 K/uL (0.0-1.0); MONOCYTES % (AUTO) 7.4 % (1.7-9.3); NEUTROPHILS % (AUTO) 67.7 % (40.0-70.0); PLATELET COUNT (AUTO) 166 K/uL (130-430); RED CELL DISTRIBUTION WIDTH 17.9 % (9.0-15.0); WHITE BLOOD COUNT (AUTO) 4.5 K/uL (4.8-10.8)
--- NOTE | 2019-06-27 07:25 | NUR ---
Report Given to CATRACHO Mahan. All Care endorsed
[2019-06-27 07:27] LABS: ANION GAP 3 (5-15); CALCIUM 8.6 mg/dL (8.4-11.0); CHLORIDE 102 mmol/L (98-107); CREATININE 0.95 mg/dL (0.55-1.30); GLUCOSE 102 mg/dL (70-99); POTASSIUM 3.9 mmol/L (3.5-5.1); SODIUM SERUM 139 mmol/L (136-145); UREA NITROGEN, BLOOD 32 mg/dL (8-21)
--- NOTE | 2019-06-27 07:30 | NUR ---
Patient AAOx4, denies any SOB or pain. Patient resting in bed. No signs or symptoms of acute distress noted.
[2019-06-27 07:33] LABS: ALANINE AMINOTRANSFERASE 26 U/L (12-78); ALBUMIN 3.1 g/dL (3.4-4.8); ASPARTATE AMINOTRANSFERASE 34 U/L (10-37); TOTAL BILIRUBIN 0.8 mg/dL (0.0-1.0)
--- NOTE | 2019-06-27 07:51 | NUR ---
Patient given written and verbal discharge instructions and verbalizes understanding. ER MD discussed with patient the results and treatment provided. Patient in stable condition. ID arm band removed. IV catheter removed intact and dressing applied, no active bleeding. Rx of Albuterol given. Patient educated on pain management and to follow up with PMD. Pain Scale 0/10. Opportunity for questions provided and answered. Medication side effect fact sheet provided.
--- NOTE | 2019-06-27 08:25 | NUR ---
Assisted patient to restroom and back to hospital bed. No signs or symptoms of acute distress noted.
[2019-06-27 08:58] VITALS: BP_SYST 130
--- NOTE | 2019-06-27 08:58 | NUR ---
Patient given written and verbal discharge instructions and verbalizes understanding. ER MD discussed with patient the results and treatment provided. Patient in stable condition. ID arm band removed. Rx of breathing treatment given. Patient educated on pain management and to follow up with PMD. Pain Scale 0/10. Opportunity for questions provided and answered. Medication side effect fact sheet provided.
--- NOTE | 2019-06-27 09:00 | NUR ---
Patient transferred back to assisted living center via ambulance. Endorsed bedside report to EMT.
== END 2019-06-27 07:50 | disposition home or self-care (01) ==
LOC: SED 06:18
DX: R06.02 Shortness of breath (principal); I48.91 Unspecified atrial fibrillation; I11.0 Hypertensive heart disease with heart failure; I50.9 Heart failure, unspecified; E03.9 Hypothyroidism, unspecified
CPT/HCPCS: 36415; 71045; 80053; 85025; 94640; 99284; J7612

== ENCOUNTER 2019-06-27 23:36 | Emergency (ER) | payer MEDICARE, MEDICAID ==
[~2019-06-27] VITALS: Ht 167.6 cm; Wt 63.5 kg
[2019-06-27 23:45] VITALS: BP_SYST 134
[2019-06-28] MEDS ORDERED: IPRATROPIUM/ALBUTEROL SULFATE 3 ML AMPUL.NEB (DUONEB) INH ONE
[2019-06-28 01:52] VITALS: BP_SYST 138
== END 2019-06-28 01:52 | disposition home or self-care (01) ==
LOC: SED 23:36
DX: J44.1 Chronic obstructive pulmonary disease with (acute) exacerbation (principal); I48.20 Chronic atrial fibrillation, unspecified; E07.9 Disorder of thyroid, unspecified; I63.9 Cerebral infarction, unspecified; I10 Essential (primary) hypertension; Z79.899 Other long term (current) drug therapy; Z88.0 Allergy status to penicillin
CPT/HCPCS: 94640; 99283; J7620